=== PATIENT | female | born 1995 | race Caucasian/White ===

== ENCOUNTER 2018-06-23 08:05 | Inpatient (IN) | payer BC, OTHER ==
[2018-06-23 08:57] LABS: APPEARANCE,URINE CLOUDY; BILIRUBIN,URINE NEGATIVE (NEGATIVE); COLOR,URINE YELLOW; GLUCOSE, URINE NEGATIVE (NEGATIVE); KETONES,URINE NEGATIVE (NEGATIVE); LEUKOCYTE ESTERASE,URINE TRACE (NEGATIVE); NITRITE,URINE NEGATIVE (NEGATIVE); PROTEIN,URINE 30 mg/dL (NEGATIVE); URINE SPECIFIC GRAVITY 1.018; UROBILINOGEN,URINE NEGATIVE mg/dL (<2.0)
[2018-06-23 09:12] LABS: URINE AMPHETAMINES SCREEN NEGATIVE; URINE BARBITURATES SCREEN NEGATIVE; URINE BENZODIAZEPINES SCREEN NEGATIVE; URINE COCAINE SCREEN NEGATIVE; URINE MARIJUANA (THC) SCREEN NEGATIVE; URINE METHADONE SCREEN NEGATIVE; URINE PHENCYCLIDINE SCREEN NEGATIVE
[2018-06-23] MEDS ORDERED: RINGERS SOLUTION,LACTATED 1,000 ML IV ONE (09:23)
[2018-06-23] MEDS ORDERED: PENICILLIN G POTASSIUM 5,000,000 UNIT in DEXTROSE 5%-WATER 100 ML IV ONE (09:23)
[2018-06-23] MEDS ORDERED: ONDANSETRON HCL INJ/PF 4 MG/2 ML SDV IV PRN (09:29)
[2018-06-23] MEDS ORDERED: AZITHROMYCIN INJ 500 MG VIAL IV ONE ×2 (09:30→11:08)
[2018-06-23] MEDS ORDERED: PENICILLIN G-K 5 MILLION UNIT VIAL ONE ×4 (09:31→21:56)
[2018-06-23] MEDS ORDERED: ONDANSETRON HCL INJ/PF 4 MG/2 ML SDV ONE (09:31)
[2018-06-23] MEDS ORDERED: BETAMET ACET/BETAMET NA INJ 6 MG/1 ML ONE (09:31)
--- NOTE | 2018-06-23 09:36 | Admission Physical ---
Datetime Report Generated by CPN: 06/23/2018 09:36 CURRENT ADMISSION Chief Complaint: Suspected Ruptured Membranes Indication for Induction: Postterm Admit Impression : , Intrauterine Admit Plan: Admit to Unit; Initiate Labor Protocol ALLERGIES Medication Allergies: No Medication Allergies: No Known Allergies (06/23/2018) Latex: No Latex Allergies Food Allergies: none noted Environmental Allergies: noted OBSTETRICAL HISTORY EDC: 08/16/2018 00:00 : 1 Para: 0 Term: 0 : 0 SAB: 0 IAB: 0 Livin Gestational Diabetes: No Rh Sensitization: No Incompetent Cervix: No MELODIE: No Infertility: No ART Treatment: No Uterine Anomaly: No IUGR: No Hx Previous C/S: No Macrosomia: No Hx Loss/Stillborn: No PIH: No Hx : No Placenta Previa/Abruption: No Depression/PP Depression: No PTL/PROM: No Post Hemorrhage: No Current Procedures: Ultrasound; NST Obstetrical History Comments: SEE RECORDS Alcohol: No Marijuana : No Cocaine: No Other Illicit Drugs: No Cigarettes: Never Smoker. [id number] MEDICAL HISTORY Diabetes: No Blood Transfusion: No Pulmonary Disease (Asthma, TB): No Breast Disease: No Hypertension: No Service Delivery Manager Surgery: No Heart Disease: No Hosp/Surgery: No Autoimmune Disorder: No Anesthetic Complications: No Kidney Disease: No Abnormal Pap Smear: No Neuro/Epilepsy: No Psychiatric Disorders: No Other Medical Diseases: No Hepatitis/Liver Disease: No Significant Family History: No Varicosities/Phlebitis: No Thyroid Dysfunction: No PHYSICAL EXAM General: Normal HEENT: Normal Neurologic: Normal Thyroid: Normal Heart: Normal Lungs: Normal Breast: Normal Back: Normal Abdomen: Normal Genitourinary Exam: Normal Extremities: Normal DTRs: Normal Pelvic Type: Adequate Vital Signs: Reviewed; Within Normal Limits VAGINAL EXAM Contraction Comments: q 2-4 MEMBRANES Pooling: Positive Membranes: Ruptured Amniotic Fluid Color: Clear FETUS A EGA: 32.2 Monitoring: External US FHR- Baseline: 130s Variability: Moderate 6-25bpm Accelerations: 15X15 Decelerations: None FHR Category: Category I Admit Comment: Cervix not checked, but Actim Prom POSITIVE. Betamethasone given. Will start Zithromax to help prolong latency. PCN for GBS prophylaxis. PLANS FOR LABOR AND DELIVERY Labor and Delivery: None Pain Management: None Feeding Preference: Breast Benefit of Breast Feed Discussed: Yes Circumcision: N/A INFORMED CONSENT Signature: with User ID: [email or web address]
--- NOTE | 2018-06-23 09:41 | L&D Progress Notes ---
PROGRESS NOTES Datetime Report Generated by CPN: 06/23/2018 09:41 PROGRESS NOTE Impression: Rupture of Membranes Procedures- Other: bedside US Plan: Continue Present Management Vital Signs : Reviewed; Within Normal Limits Comment: Pt states that fetus was breech at last visit. Bedside US shows vertex position, VAGINAL EXAM Contractions: q 2-4 MEMBRANES Pooling: Positive Membranes: Ruptured Amniotic Fluid Color: Clear FETUS A FHR - Baseline: 130s Monitoring: External US Accelerations: 15X15 Decelerations: None FHR Category: Category I : 32.2 SIGNATURE SIGNATURE: [id number];[id number] SIGNATURE: [id number] Signature: with User ID: [email or web address]
[2018-06-23] MEDS ORDERED: AZITHROMYCIN INJ 500 MG VIAL IV SCH (10:00)
[2018-06-23 10:19] LABS: ABSOLUTE LYMPHOCYTES (AUTO) 1.4 10^3/uL (0.5-4.7); ABSOLUTE MONOCYTES (AUTO) 0.6 10^3/uL (0.1-1.4); ABSOLUTE NEUT (AUTO) 5.4 10^3/uL (1.7-8.2); BASOPHILS % (AUTO) 0.5 % (0-2); EOSINOPHILS % (AUTO) 0.5 % (0-6); HEMATOCRIT 34.3 % (36.0-47.0); HEMOGLOBIN 11.5 g/dL (12.0-15.5); LYMPHOCYTES % (AUTO) 18.4 % (13-45); MEAN CORPUSCULAR HEMOGLOBIN 29.6 pg (27.0-33.4); MEAN CORPUSCULAR HGB CONC 33.6 g/dL (32.0-36.0); MEAN CORPUSCULAR VOLUME 88 fl (80-97); MONOCYTES % (AUTO) 8.3 % (3-13); PLATELET COUNT 260 10^3/uL (150-450); RED BLOOD COUNT 3.89 10^6/uL (3.72-5.28); RED CELL DISTRIBUTION WIDTH 12.1 % (11.5-14.0); SEGMENTED NEUTROPHILS % (AUTO) 72.3 % (42-78); TOTAL CELLS COUNTED % (AUTO) 100 %; WHITE BLOOD COUNT 7.4 10^3/uL (4.0-10.5)
[2018-06-23] MEDS: PENICILLIN G POTASSIUM 2,500,000 UNIT in DEXTROSE 5%-WATER 50 ML IV SCH ×3 (14:10→22:03)
--- NOTE | 2018-06-23 20:09 | L&D Progress Notes ---
PROGRESS NOTES Datetime Report Generated by CPN: 06/23/2018 20:09 PROGRESS NOTE Procedures- Other: monitoring Plan: Continue Present Management Vital Signs : Reviewed; Within Normal Limits Comment: Contractions spacing out. Pt still comfortable. PCN and Zithromax given. Betamethasone x 1 given. FETUS A FHR - Baseline: 130s Monitoring: External US Variability: Moderate 6-25bpm Accelerations: 15X15 Decelerations: None FHR Category: Category I : 32.2 FETUS C SIGNATURE: [id number];[id number] Signature: with User ID: [email or web address]
[2018-06-24] MEDS ORDERED: PENICILLIN G-K 5 MILLION UNIT VIAL ONE ×4 (01:47→13:28)
[2018-06-24] MEDS: PENICILLIN G POTASSIUM 2,500,000 UNIT in DEXTROSE 5%-WATER 50 ML IV SCH ×6 (01:57→21:23)
[2018-06-24] MEDS ORDERED: MAGNESIUM SULFATE 4 GM/100 ML RTUPB IV ONE ×2 (07:56→09:30)
--- NOTE | 2018-06-24 07:57 | L&D Progress Notes ---
PROGRESS NOTES Datetime Report Generated by CPN: 06/24/2018 07:56 PROGRESS NOTE Procedures- Other: Mag sulfate Plan: Anticipate Vaginal Delivery Vital Signs : Reviewed; Within Normal Limits Comment: Pt still comfortable. Will give Magnesium sulfate 4 g bolus for neuroprotection. Cont current care. VAGINAL EXAM Contractions: q 6 min FETUS A FHR - Baseline: 130s Monitoring: External US Variability: Moderate 6-25bpm Accelerations: 15X15 Decelerations: None FHR Category: Category I : 32.3 FETUS C SIGNATURE: [id number];[id number] Signature: with User ID: [email or web address]
[2018-06-24] MEDS ORDERED: AZITHROMYCIN 250 MG TABLET ONE (09:20)
[2018-06-24] MEDS ORDERED: BETAMET ACET/BETAMET NA INJ 6 MG/1 ML ONE (09:22)
[2018-06-24] MEDS: BETAMET ACET/BETAMET NA INJ 6 MG/1 ML IM SCH ×2 (09:26→19:57)
--- NOTE | 2018-06-24 09:46 | Non Stress Test Report ---
Non Stress Test Datetime Report Generated by CPN: 06/24/2018 09:46 DEMOGRAPHIC EGA NST: 32.3 INDICATION Indication for Study: Ordered by Provider MONITORING Monitor Explained: Monitor Explained; Test Explained; Patient Verbalized Understanding Time on Monitor: 06/24/2018 09:16 Time off Monitor: 06/24/2018 09:36 NST Duration: 20 NST INTERVENTIONS NST Interventions: PO Hydration Physician Notified NST: C. Diallo, CNM BABY A: [id number] BABY A Movement : Present Contraction Frequency : irregular FHR Baseline : 140 Accelerations : 15X15 Decelerations : None Variability : Moderate 6-25bpm NST Review: Meets Criteria for Reactive NST NST Review and Verified By : DIANE Cortez Results: Reactive NST REPORT Report Trigger: Send Report
[2018-06-24] MEDS: AZITHROMYCIN 250 MG TABLET PO SCH (10:32)
[2018-06-25] MEDS: PENICILLIN G POTASSIUM 2,500,000 UNIT in DEXTROSE 5%-WATER 50 ML IV SCH ×6 (01:44→21:40)
[2018-06-25] MEDS: AZITHROMYCIN 250 MG TABLET PO SCH (11:06)
[2018-06-26] MEDS: PENICILLIN G POTASSIUM 2,500,000 UNIT in DEXTROSE 5%-WATER 50 ML IV SCH ×6 (01:30→21:54)
--- NOTE | 2018-06-26 06:48 | PDOC PROGRESS REPORT ---
Subjective Progress Note for:: 06/25/18 Subjective:: doing well. no contractions, no bleeding. has not noted any further leakage of fluid Reason For Visit: Physical Exam - Physical Exam Vital Signs: Temp Pulse Resp BP Pulse Ox 98.4 F 70 16 101/56 L 97 06/26/18 03:33 06/26/18 03:33 06/26/18 03:33 06/26/18 03:33 06/26/18 03:33 Intake & Output 06/24/18 06/25/18 06/26/18 06:59 06:59 06:59 Intake Total 250 1100 990 Balance 250 1100 990 Weight 67 kg 67.3 kg 67.3 kg General appearance: PRESENT: no acute distress, cooperative GI/Abdominal exam: PRESENT: soft - no tenderness - Obstetrical Exam Fundal Height: 3/u - 4/u - no fundal tenderness Result Laboratory Results: 06/23/18 09:49 Assessment & Plan - Diagnosis (1) Qualifiers: Weeks of gestation: 32 weeks Qualified Code(s): Z3A.32 - 32 weeks gestation of Is this a current diagnosis for this admission?: Yes (2) premature rupture of membranes, antepartum Is this a current diagnosis for this admission?: Yes - Time Time Spent with patient: Less than 15 minutes Within: Other - Inpatient Certification Based on my medical assessment, after consideration of the patient's comorbidities, presenting symptoms, or acuity I expect that the services needed warrant INPATIENT care.: Yes I certify that my determination is in accordance with my understanding of Medicare's requirements for reasonable and necessary INPATIENT services [42 CFR 412.3e].: Yes Medical Necessity: Need Close Monitoring Due to Risk of Patient Decompensation, Need for IV Antibiotics - Plan Summary Plan Summary: deliver at 34 wks if labor does not ensue. monitor in hospital for signs/sxs of infection which would require earlier delivery.
--- NOTE | 2018-06-26 09:07 | PDOC PROGRESS REPORT ---
Subjective Progress Note for:: 06/26/18 Subjective:: She feels well today with good movement. Reason For Visit: prolonged rupture of membranes. Physical Exam - Physical Exam Vital Signs: Temp Pulse Resp BP Pulse Ox 98.2 F 80 17 117/75 98 06/26/18 08:18 06/26/18 08:18 06/26/18 08:18 06/26/18 08:18 06/26/18 08:18 Intake & Output 06/25/18 06/26/18 06/27/18 06:59 06:59 06:59 Intake Total 1100 1040 Balance 1100 1040 Weight 67.3 kg 67.3 kg General appearance: PRESENT: no acute distress GI/Abdominal exam: PRESENT: normal bowel sounds, soft, other - gravid. ABSENT: distended, guarding, mass, organolmegaly, rebound, tenderness Result Laboratory Results: 06/23/18 09:49 Impressions: Ruptured membranes at 33w 1d. Monitor for signs of infection. Consider delivery at 34 wks. Assessment & Plan - Diagnosis (1) premature rupture of membranes, antepartum Is this a current diagnosis for this admission?: Yes - Time Time Spent with patient: 15-24 minutes - Plan Summary Plan Summary: Monitor for infections. Deliver at 34 wks.
[2018-06-26] MEDS: AZITHROMYCIN 250 MG TABLET PO SCH (09:28)
[2018-06-27] MEDS: PENICILLIN G POTASSIUM 2,500,000 UNIT in DEXTROSE 5%-WATER 50 ML IV SCH ×6 (01:28→21:08)
--- NOTE | 2018-06-27 09:22 | PDOC PROGRESS REPORT ---
Subjective Progress Note for:: 06/27/18 Subjective:: Patient states that she feels good; rare contractions. Patient reports good movement. She has no complaints of abnormal discharge. Patient denies chest pain, shortness of breath, fever/chills and nausea/vomiting. Reason For Visit: Physical Exam - Physical Exam Vital Signs: Temp Pulse Resp BP Pulse Ox 98.2 F 68 18 117/71 96 06/27/18 05:49 06/27/18 03:46 06/27/18 03:46 06/26/18 23:36 06/27/18 03:46 Intake & Output 06/26/18 06/27/18 06/28/18 06:59 06:59 06:59 Intake Total 1090 250 Balance 1090 250 Weight 67.3 kg 67.1 kg General appearance: PRESENT: no acute distress Respiratory exam: PRESENT: clear to auscultation gely Cardiovascular exam: PRESENT: RRR GI/Abdominal exam: PRESENT: normal bowel sounds, soft Extremities exam: ABSENT: calf tenderness, clubbing, full ROM, joint swelling, pedal edema, tenderness, +1 edema, +2 edema, other Result Laboratory Results: 06/23/18 09:49 Assessment & Plan - Diagnosis (1) Qualifiers: Weeks of gestation: 32 weeks Qualified Code(s): Z3A.32 - 32 weeks gestation of Is this a current diagnosis for this admission?: Yes (2) premature rupture of membranes, antepartum Is this a current diagnosis for this admission?: Yes - Time Time Spent with patient: Less than 15 minutes Within: Other - After delivery at 34 weeks - Plan Summary Plan Summary: 1. CBC 2. EMERALD brown 3. Continue current care
[2018-06-27] MEDS: AZITHROMYCIN 250 MG TABLET PO SCH (09:31)
[2018-06-27 10:41] LABS: ABSOLUTE LYMPHOCYTES (AUTO) 1.7 10^3/uL (0.5-4.7); ABSOLUTE MONOCYTES (AUTO) 0.8 10^3/uL (0.1-1.4); ABSOLUTE NEUT (AUTO) 5.9 10^3/uL (1.7-8.2); BASOPHILS % (AUTO) 0.2 % (0-2); EOSINOPHILS % (AUTO) 0.1 % (0-6); HEMATOCRIT 31.3 % (36.0-47.0); HEMOGLOBIN 10.8 g/dL (12.0-15.5); LYMPHOCYTES % (AUTO) 19.9 % (13-45); MEAN CORPUSCULAR HEMOGLOBIN 30.5 pg (27.0-33.4); MEAN CORPUSCULAR HGB CONC 34.7 g/dL (32.0-36.0); MEAN CORPUSCULAR VOLUME 88 fl (80-97); MONOCYTES % (AUTO) 9.6 % (3-13); PLATELET COUNT 251 10^3/uL (150-450); RED BLOOD COUNT 3.55 10^6/uL (3.72-5.28); SEGMENTED NEUTROPHILS % (AUTO) 70.2 % (42-78); TOTAL CELLS COUNTED % (AUTO) 100 %; WHITE BLOOD COUNT 8.3 10^3/uL (4.0-10.5)
[2018-06-28] MEDS: PENICILLIN G POTASSIUM 2,500,000 UNIT in DEXTROSE 5%-WATER 50 ML IV SCH ×6 (01:53→21:56)
[2018-06-28] MEDS: AZITHROMYCIN 250 MG TABLET PO SCH (11:00)
[2018-06-29] MEDS: PENICILLIN G POTASSIUM 2,500,000 UNIT in DEXTROSE 5%-WATER 50 ML IV SCH ×6 (00:34→22:28)
[2018-06-29] MEDS: AZITHROMYCIN 250 MG TABLET PO SCH (09:48)
--- NOTE | 2018-06-29 20:00 | PDOC PROGRESS REPORT ---
Subjective Progress Note for:: 06/29/18 Reason For Visit: . doing well. occasional contractions. Physical Exam - Physical Exam Vital Signs: Temp Pulse Resp BP Pulse Ox 98.4 F 91 16 112/65 97 06/29/18 17:58 06/29/18 15:57 06/29/18 15:57 06/29/18 15:57 06/29/18 15:57 Intake & Output 06/28/18 06/29/18 06/30/18 06:59 06:59 06:59 Intake Total 086 180 4559 Balance 235 692 8950 Weight 65.6 kg 65.8 kg General appearance: PRESENT: no acute distress, cooperative Result Laboratory Results: 06/27/18 10:05 Assessment & Plan - Diagnosis (1) Qualifiers: Weeks of gestation: 32 weeks Qualified Code(s): Z3A.32 - 32 weeks gestation of Is this a current diagnosis for this admission?: Yes (2) premature rupture of membranes, antepartum Is this a current diagnosis for this admission?: Yes - Plan Summary Plan Summary: JONELLE 33 4/7 today with ruptured membranes. Plan for delivery after 34 wks which should be on 07/02/18
[2018-06-30] MEDS: PENICILLIN G POTASSIUM 2,500,000 UNIT in DEXTROSE 5%-WATER 50 ML IV SCH ×5 (01:39→19:47)
[2018-06-30] MEDS: AZITHROMYCIN 250 MG TABLET PO SCH (09:47)
--- NOTE | 2018-06-30 10:23 | PDOC PROGRESS REPORT ---
Subjective Progress Note for:: 06/30/18 Subjective:: pt without complaints Reason For Visit: Physical Exam - Physical Exam Vital Signs: Temp Pulse Resp BP Pulse Ox 98.1 F 56 L 16 110/79 96 06/30/18 09:45 06/30/18 07:48 06/30/18 07:48 06/30/18 07:48 06/30/18 07:48 Intake & Output 06/29/18 06/30/18 07/01/18 06:59 06:59 06:59 Intake Total 300 2260 Balance 300 2260 Weight 65.8 kg General appearance: PRESENT: no acute distress Result Laboratory Results: 06/27/18 10:05 Assessment & Plan - Diagnosis (1) Qualifiers: Weeks of gestation: 32 weeks Qualified Code(s): Z3A.32 - 32 weeks gestation of Is this a current diagnosis for this admission?: Yes (2) premature rupture of membranes, antepartum Is this a current diagnosis for this admission?: Yes - Plan Summary Plan Summary: plan induction at 34 weeks
--- NOTE | 2018-06-30 13:31 | RADIOLOGY REPORT (SQ) ---
EXAM DESCRIPTION: U/S PROFILE W/O STRESS COMPLETED DATE/TIME: 06/30/2018 1:19 pm REASON FOR STUDY: non-reactive stress test; need exact RAMESH COMPARISON: None. TECHNIQUE: Limited best-scale realtime and static images of the fetus to measure specified parameter s. LIMITATIONS: None. FINDINGS: HEART RATE: 136 beats per minute. RAMESH: 13.6 cm. BREATHING MOVEMENT: 0 points. MOVEMENT: 2 points. POSTURE AND TONE: 2 points. QUALITATIVE RAMESH: 2 points. OTHER: No other significant finding. IMPRESSION: BIOPHYSICAL PROFILE: 12/14. Trimester of : Third - 28 weeks to delivery COMMENT: BREATHING MOVEMENTS: 2 POINTS: PRESENT 0 POINTS: ABSENT MOTION: 2 POINTS: PRESENT 0 POINTS: ABSENT TONE: 2 POINTS: PRESENT 0 POINTS: ABSENT AMNIOTIC FLUID VOLUME: 2 POINTS: LARGEST POCKET GREATER THAN 2 CM DEPTH. 0 POINTS: NO POCKET OF 2 CM. TECHNICAL DOCUMENTATION: JOB ID: [id number] [employer]- All Rights Reserved Reading location - IP/workstation name: [email or web address]
[2018-07-01] MEDS: PENICILLIN G POTASSIUM 2,500,000 UNIT in DEXTROSE 5%-WATER 50 ML IV SCH ×6 (00:15→20:21)
--- NOTE | 2018-07-01 08:26 | RADIOLOGY REPORT (SQ) ---
EXAM DESCRIPTION: U/S PROFILE W/O STRESS COMPLETED DATE/TIME: 07/01/2018 8:05 am REASON FOR STUDY: non-reative NST; BBP 06/30 is 6/8; need exact RAMESH COMPARISON: 04/30/2018 TECHNIQUE: Limited best-scale realtime and static images of the fetus to measure specified parameter s. LIMITATIONS: None. FINDINGS: HEART RATE: 149 beats per minute. RAMESH: 10.8 cm. BREATHING MOVEMENT: 2 points. MOVEMENT: 2 points. POSTURE AND TONE: 2 points. QUALITATIVE RAMESH: 2 points. OTHER: No other significant finding. IMPRESSION: BIOPHYSICAL PROFILE: 02/13. Trimester of : Third - 28 weeks to delivery COMMENT: BREATHING MOVEMENTS: 2 POINTS: PRESENT 0 POINTS: ABSENT MOTION: 2 POINTS: PRESENT 0 POINTS: ABSENT TONE: 2 POINTS: PRESENT 0 POINTS: ABSENT AMNIOTIC FLUID VOLUME: 2 POINTS: LARGEST POCKET GREATER THAN 2 CM DEPTH. 0 POINTS: NO POCKET OF 2 CM. TECHNICAL DOCUMENTATION: JOB ID: [id number] [employer]- All Rights Reserved Reading location - IP/workstation name: [email or web address]
--- NOTE | 2018-07-01 09:57 | PDOC PROGRESS REPORT ---
Subjective-OB Progress Note for:: 07/01/18 - IUP at 33.6 days. For IOL tomorrow. Doing well today, no complaints. s/p PPROM on 06/23, GBS result pending. Physical Exam (OB) Vital Signs: Temp Pulse Resp BP Pulse Ox 97.7 F 105 H 18 111/78 98 07/01/18 08:00 07/01/18 08:00 07/01/18 08:00 07/01/18 08:00 07/01/18 08:00 Intake & Output 06/30/18 07/01/18 07/02/18 06:59 06:59 06:59 Intake Total 2260 200 Balance 2260 200 Weight 65.8 kg - General General Appearance: Appears well, Alert In distress: None - Abdomen Description: Soft Hernia Present: No Fundal Height: 3/u - 4/u - no fundal tenderness - Respiratory Respiratory Status: No respiratory distress - Abdominal Inspection: Normal Tenderness: Nontender - Genitourinary Genitourinary Note: voiding - Extremities Upper extremity: Normal inspection Lower extremities: Normal inspection - Neurological Cognition: Normal, Confused - Psychological Associated symptoms: Normal affect, Normal mood - Skin Skin Temperature: Warm Skin Moisture: Dry Objective-Diagnostic Laboratory: 06/27/18 10:05 Assessment and Plan(PN) - Assessment and Plan (1) 33 weeks gestation of Is this a current diagnosis for this admission?: Yes (2) Qualifiers: Weeks of gestation: 33 weeks Qualified Code(s): Z3A.33 - 33 weeks gestation of Is this a current diagnosis for this admission?: Yes (3) premature rupture of membranes, antepartum Is this a current diagnosis for this admission?: Yes - Time Spent with Patient Time with patient: Less than 15 minutes Medications reviewed and adjusted accordingly: Yes - Disposition Disposition: VE Plan IOL for 07/[address] Keller aware of pt status and plan of care
[2018-07-02] MEDS: PENICILLIN G POTASSIUM 2,500,000 UNIT in DEXTROSE 5%-WATER 50 ML IV SCH ×6 (00:28→20:48)
[2018-07-02] MEDS ORDERED: ZOLPIDEM TARTRATE 5 MG TABLET PO PRN (20:24)
[2018-07-02] MEDS ORDERED: MAG HYDROX/AL HYDROX/SIMETH SUSP 30 ML UDCUP PO PRN (20:24)
[2018-07-02] MEDS ORDERED: ACETAMINOPHEN 325 MG TABLET PO PRN (20:24)
[2018-07-02] MEDS ORDERED: DINOPROSTONE 10 MG VAGINAL INSERT.SR PV ONE (20:40)
[2018-07-02] MEDS: RINGERS SOLUTION,LACTATED 1,000 ML IV PRN (20:48)
[2018-07-02] MEDS ORDERED: DINOPROSTONE 10 MG VAGINAL INSERT.SR ONE (20:50)
[2018-07-03] MEDS: PENICILLIN G POTASSIUM 2,500,000 UNIT in DEXTROSE 5%-WATER 50 ML IV SCH ×6 (00:20→23:00)
[2018-07-03] MEDS: RINGERS SOLUTION,LACTATED 1,000 ML IV PRN ×2 (05:01→14:18)
[2018-07-03 09:27] LABS: BACTERIA (WET MOUNT) 3+ BACTERIA SEEN; EPITHELIALS (WET MOUNT) 3+ EPITHELIALS SEEN; T.VAGINALIS (WET MOUNT) NO TRICHOMONAS SEEN; WBCS (WET MOUNT) 1+ WBCS SEEN; YEAST (WET MOUNT) NO YEAST SEEN
[2018-07-03] MEDS ORDERED: OXYTOCIN 10 UNIT/ML VIAL ONE (10:21)
[2018-07-03] MEDS ORDERED: OXYTOCIN/NORMAL SALINE 20 UNIT/1,000 ML RTUINJ ONE (10:21)
[2018-07-03] MEDS ORDERED: LIDOCAINE 1% INJ-PF (10 MG/ML) 30 ML SDV ONE (10:21)
[2018-07-03] MEDS ORDERED: MISOPROSTOL 0.2 MG TABLET ONE (10:21)
[2018-07-03] MEDS ORDERED: PENICILLIN G-K 5 MILLION UNIT VIAL ONE ×3 (10:22→18:57)
--- NOTE | 2018-07-03 10:23 | L&D Progress Notes ---
PROGRESS NOTES Datetime Report Generated by CPN: 07/03/2018 10:23 PROGRESS NOTE Impression: Reassuring Heart Rate Procedures: Sterile Vag Exam Plan: Continue Present Management; Induction; Anticipate Vaginal Delivery Vital Signs : Reviewed; Within Normal Limits Comment: VE 1+, 60-70, vtx, 0 to + 1 Plan reviewed with pt and family, questions answered, start Pitocin Cat 1 strip LAST VAGINAL EXAM-NURSING Dilitation: 1.0 Dilitation: 1.0 Effacement: 60 Effacement: thick Station: 0 Station: -1 Contractions: tracing inverted Contractions: difficult to assess not tracing well Contractions: UC tracing inverted Contractions: pt denies feeling UC at this time Contractions: applied MEMBRANES Membranes: Ruptured FETUS A FHR - Baseline: 155 Monitoring: External US Variability: Moderate 6-25bpm Accelerations: 15X15 Decelerations: None : 34.0 SIGNATURE SIGNATURE: [id number];[id number];14,[id number] SIGNATURE: [id number];13,[id number];10,[id number] Assignment: Meliza Hoang MD Signature: with User ID: [email or web address] : with User ID: [email or web address]
[2018-07-03] MEDS ORDERED: OXYTOCIN/NORMAL SALINE 20 UNIT/1,000 ML RTUINJ IV PRN (10:25)
[2018-07-03 11:03] LABS: CHLAM PCR NOT DETECTED (NOT DETECT); GON PCR NOT DETECTED (NOT DETECT)
--- NOTE | 2018-07-03 20:08 | L&D Progress Notes ---
PROGRESS NOTES Datetime Report Generated by CPN: 07/03/2018 20:08 PROGRESS NOTE Impression: Normal Progression of Labor Procedures: Sterile Vag Exam Plan: Continue Present Management; Induction; Cervical Ripening Informed Consent Obtained: Vaginal Delivery; Induction of Labor; Risks, Benefits and Alternatives Discussed Comment: /-1. Cheko catheter placed. Pt tolerated well. Reviewed IOL process and continue with plan of care. Anticipate . VAGINAL EXAM Dilitation: 1.5 Effacement: 50 Station: -1 MEMBRANES Membranes: Ruptured FETUS A FHR - Baseline: 150 Monitoring: External US Accelerations: 15X15 Decelerations: None FHR Category: Category I FETUS C SIGNATURE: [id number];13,[id number];10,[id number] Signature: with User ID: [email or web address]
[2018-07-03] MEDS ORDERED: ZOLPIDEM TARTRATE 5 MG TABLET ONE (21:54)
[2018-07-03] MEDS ORDERED: ACETAMINOPHEN 325 MG TABLET ONE (23:29)
[2018-07-04] MEDS: PENICILLIN G POTASSIUM 2,500,000 UNIT in DEXTROSE 5%-WATER 50 ML IV SCH ×3 (03:22→18:12)
[2018-07-04] MEDS ORDERED: NALBUPHINE HCL INJ 10 MG/1 ML AMPULE ONE (04:28)
[2018-07-04] MEDS ORDERED: NALBUPHINE HCL INJ 10 MG/1 ML AMPULE INJ ONE (05:00)
[2018-07-04] MEDS ORDERED: OXYTOCIN/NORMAL SALINE 20 UNIT/1,000 ML RTUINJ ONE (07:16)
[2018-07-04] MEDS ORDERED: LIDOCAINE 1% INJ-PF (10 MG/ML) 30 ML SDV ONE (07:21)
[2018-07-04] MEDS ORDERED: PROMETHAZINE HCL 25 MG TABLET PO PRN (08:29)
[2018-07-04] MEDS ORDERED: DIPHENHYDRAMINE HCL 25 MG CAPSULE PO PRN (08:29)
[2018-07-04] MEDS ORDERED: MAGNESIUM HYDROXIDE SUSP 30 ML UDCUP PO PRN (08:29)
[2018-07-04] MEDS ORDERED: PROMETHAZINE HCL INJ 25 MG/1 ML VIAL IV PRN (08:29)
[2018-07-04] MEDS ORDERED: PROMETHAZINE HCL 25 MG SUPP.RECT PR PRN (08:29)
[2018-07-04] MEDS ORDERED: GLYCERIN/WITCH HAZEL LEAF 1 EACH MED..PAD TP PRN (08:29)
[2018-07-04] MEDS ORDERED: MISOPROSTOL 0.2 MG TABLET PR PRN (08:29)
[2018-07-04] MEDS ORDERED: DIBUCAINE 1% OINTMENT 28 GM TP PRN (08:29)
[2018-07-04] MEDS ORDERED: PSEUDOEPHEDRINE HCL 30 MG TABLET PO PRN (08:29)
[2018-07-04] MEDS ORDERED: DIPH/PERTUSS(ACELL)/TETANUS VAC/PF 0.5 ML SYR (>=10YO) IM PRN (08:29)
[2018-07-04] MEDS ORDERED: BENZOCAINE/MENTHOL AEROSOL SPRAY 56 ML TOP PRN (08:29)
[2018-07-04] MEDS ORDERED: OXYTOCIN/NORMAL SALINE 20 UNIT/1,000 ML RTUINJ IV PRN (08:29)
[2018-07-04] MEDS ORDERED: ACETAMINOPHEN WITH CODEINE #3 TABLET PO PRN ×2 (08:29)
[2018-07-04] MEDS ORDERED: ACETAMINOPHEN 325 MG TABLET PO PRN (08:29)
[2018-07-04] MEDS ORDERED: MEASLES,MUMPS&RUBELLA VACC/PF 0.5 ML VIAL SUBCUT PRN (08:29)
[2018-07-04] MEDS ORDERED: ZOLPIDEM TARTRATE 5 MG TABLET PO PRN (08:29)
[2018-07-04] MEDS ORDERED: NA PHOS,M-B/NA PHOS,DI-BA (ADULT) 133 ML ENEMA PR PRN (08:29)
[2018-07-04] MEDS: FAMOTIDINE 20 MG TABLET PO SCH ×2 (11:40→22:43)
[2018-07-04] MEDS: FERROUS SULFATE 325 MG TABLET PO SCH ×2 (11:41→18:20)
[2018-07-04] MEDS: SENNOSIDES/DOCUSATE 8.6-50 MG 1 EACH TABLET PO SCH (11:41)
[2018-07-04] MEDS: PRENATAL VITAMIN W DHA CAPSULE PO SCH (11:41)
[2018-07-04] MEDS: DOCUSATE SODIUM 100 MG CAPSULE PO SCH ×2 (11:41→18:21)
[2018-07-04] MEDS: IBUPROFEN 800 MG TABLET PO SCH ×2 (11:44→22:42)
[2018-07-05] MEDS: IBUPROFEN 800 MG TABLET PO SCH ×4 (06:02→22:41)
[2018-07-05 07:12] LABS: HEMATOCRIT 23.3 % (36.0-47.0); MEAN CORPUSCULAR HEMOGLOBIN 29.7 pg (27.0-33.4); MEAN CORPUSCULAR HGB CONC 33.9 g/dL (32.0-36.0); MEAN CORPUSCULAR VOLUME 88 fl (80-97); PLATELET COUNT 241 10^3/uL (150-450); RED BLOOD COUNT 2.65 10^6/uL (3.72-5.28); RED CELL DISTRIBUTION WIDTH 12.2 % (11.5-14.0); WHITE BLOOD COUNT 9.2 10^3/uL (4.0-10.5)
[2018-07-05 07:19] LABS: HEMOGLOBIN 7.9 g/dL (12.0-15.5)
[2018-07-05] MEDS: DOCUSATE SODIUM 100 MG CAPSULE PO SCH ×2 (17:48→18:13)
[2018-07-05] MEDS: FERROUS SULFATE 325 MG TABLET PO SCH ×2 (17:48→18:13)
[2018-07-05] MEDS: PRENATAL VITAMIN W DHA CAPSULE PO SCH (17:49)
[2018-07-05] MEDS: FAMOTIDINE 20 MG TABLET PO SCH ×2 (17:49→22:41)
[2018-07-05] MEDS: SENNOSIDES/DOCUSATE 8.6-50 MG 1 EACH TABLET PO SCH (17:49)
[2018-07-06] MEDS: IBUPROFEN 800 MG TABLET PO SCH ×2 (06:00→13:20)
[2018-07-06 08:21] VITALS: BP 110/63
--- NOTE | 2018-07-06 08:55 | PDOC DISCHARGE SUMMARY ---
Final Diagnosis Discharge Date: 07/06/18 - Final Diagnosis (1) Obstetrical laceration, second degree Is this a current diagnosis for this admission?: Yes (2) Vaginal delivery Is this a current diagnosis for this admission?: Yes Discharge Data - Discharge Medication Home Medications: Vit,Calc76/Iron/Folic [Prenatabs Rx Tablet] 1 each PO DAILY 06/23/18 Reason(s) for Admission: PROM Procedures: NST Intrapartum Procedure(s): Spontaneous Vaginal Delivery Complication(s): Laceration-Periurethral Laceration-Degree: 2nd - Diagnosis Test Laboratory: Temp Pulse Resp BP Pulse Ox 98.5 F 120 H 17 115/80 95 07/05/18 09:00 07/05/18 09:00 07/05/18 09:00 07/05/18 09:00 07/05/18 09:00 06/23/18 06/23/18 06/27/18 08:23 09:49 10:05 RBC 3.89 3.55 L Hgb 11.5 L 10.8 L Hct 34.3 L 31.3 L Urine Opiates Screen NEGATIVE 07/05/18 06:47 RBC 2.65 L Hgb 7.9 L Hct 23.3 L Urine Opiates Screen - Discharge information/Instructions Discharge Activity: Balance Activity w/Rest, Pelvic Rest Discharge Diet: Regular Disposition: HOME, SELF-CARE Follow up with: [facility] in: 3, Weeks
[2018-07-06] MEDS: SENNOSIDES/DOCUSATE 8.6-50 MG 1 EACH TABLET PO SCH (10:25)
[2018-07-06] MEDS: FAMOTIDINE 20 MG TABLET PO SCH (10:25)
[2018-07-06] MEDS: PRENATAL VITAMIN W DHA CAPSULE PO SCH (10:25)
[2018-07-06] MEDS: FERROUS SULFATE 325 MG TABLET PO SCH (10:25)
[2018-07-06] MEDS: DOCUSATE SODIUM 100 MG CAPSULE PO SCH (10:25)
--- NOTE | 2018-07-16 10:25 | Delivery Summary ---
Del Sum A-C Datetime Report Generated by CPN: 07/16/2018 10:24 DELIVERY PERSONNEL DELIVERY PERSONNEL: [id number] Delivery Doctor:: Meliza Hoang MD Labor and Delivery Nurse:: Gregor Morales RNtrade embalmer Nurse:: Alayna Jerome RN Neonatal Nurse Practitioner:: JOSE RAFAEL Ott Nursery Nurse:: Enid Santos RN Student Observers:: Estela Enciso RN resident Civil Engineer/LEISURE STUDIES PROFESSOR: Marla Frederick CNA II MATERNAL INFORMATION Delivery Anesthesia: Pudendal Medications After Delivery: Pitocin Drip 20 Units/1000ml NSS Estimated Blood Loss (ml): 550 Maternal Complications: Premature Rupture of Membranes Provider Comments: Pudendal block performed in the usual fashion. VFI delivered in Direct OA presentation. No nuchal cord. However, bloody amniotic fluid noted at delivery and AROM of forebag. Shoulders and body delivered without difficulty. cord doubly clamped and cut and infant to maternal abdomen for NRP. placenta delivered intact spontaneously with large clot noted and consistent with suspected abruption likely secondary to PPROM. FF at U. Good hemostasis after repair. Mother stable after repair and placement of 1000mcg cytotec per rectum. Baby to nursery due to gestational age and PPROM. LABOR SUMMARY EDC: 08/13/2018 00:00 No. Babies in Womb: 1 Attempted: No Labor Anesthesia: None LABOR INFORMATION Reason for Induction: Premature Rupture of Membranes Onset of Labor: 07/04/2018 04:22 Complete Dilatation: 07/04/2018 07:18 Cervical Ripening Agents: Sanchez Balloon Cervical Ripening Agents: Cervidil (Annotations: removed by patient) Oxytocin: Induction Group B Beta Strep: 1 NO GROUP B STREPTOCOCCUS RECOVERED Comments in lab already Group B Beta Strep: unknown Antibiotics # of Doses: 7 Antibiotics Time of Last Dose: 0455 Name of Antibiotic Given: penicillin Steroids Given: Full Course Reason Steroids Not Administered: Indication MEMBRANES Membranes Rupture Method: Spontaneous Membranes Rupture Method: Spontaneous Rupture of Membranes: 06/23/2018 07:30 Length of Rupture (hr): 264.02 Amniotic Fluid Color: Bloody Amniotic Fluid Color: Bloody Amniotic Fluid Amount: Small Amniotic Fluid Amount: Small Amniotic Fluid Odor: Normal STAGES OF LABOR Stage 1 hr: 2 Stage 1 min: 56 Stage 2 hr: 0 Stage 2 min: 13 Stage 3 hr: 0 Stage 3 min: 4 Total Time in Labor hr: 3 Total Time in Labor min: 13 VAGINAL DELIVERY Episiotomy: None Laceration #1: Perineal Laceration Extension #1: Second Degree Laceration Repair: Yes Laceration Repair Note: 2nd degree perineal laceration repaired Sponge Count Correct: N/A Sharps Count Correct: N/A CSECTION DELIVERY Primary Indication: N/A Secondary Indication: N/A CSection Incidence: N/A Labor: N/A Elective: N/A CSection Incision: N/A BABY A INFORMATION Infant Delivery Date/Time: 07/04/2018 07:31 Method of Delivery: Vaginal Method of Delivery: Vaginal Born in Route : No : N/A Forceps: N/A Vacuum Extraction: N/A Shoulder Dystocia : No PRESENTATION/POSITION BABY A Presentation: Cephalic Cephalic Presentation: Vertex Vertex Position: Left Occipital Anterior Breech Presentation: N/A PLACENTA INFORMATION BABY A Placenta Delivery Time : 07/04/2018 07:35 Placenta Method of Delivery: Spontaneous Placenta Status: Delivered SCORES BABY A Heart Rate 1 min: >100 bpm Resp Effort 1 min: Good Cry Reflex Irritability 1 min: Cough or Sneeze or Pulls Away Muscle Tone 1 min: Some Flexion of Extremities Color 1 min: Body [place], Extremities Blue Resuscitation Effort 1 min: Tactile Stimulation SCORE 1 MIN: 8 Heart Rate 5 min: >100 bpm Resp Effort 5 min: Good Cry Reflex Irritability 5 min: Cough or Sneeze or Pulls Away Muscle Tone 5 min: Some Flexion of Extremities Color 5 min: Body [place], Extremities Blue Resuscitation Effort 5 min: Tactile Stimulation SCORE 5 MIN: 8 INFORMATION BABY A Gestational Age at Delivery: 34.2 Gestational Status: Late - 34- 36.6 Weeks Infant Outcome : Liveborn Condition : Stable Infant Sex: Female Sex: Female IDENTIFICATION BABY A Verification Date/Time: 07/04/2018 07:48 ID Band Number: [id number] Mother's Name Verified: Yes Infant RN Verifying Infant: Mateo Morales/ Estela Jaramillolair WEIGHT/LENGTH BABY A Birthweight (gm): 2072 Infant Weight (lb): 4 Infant Weight (oz): 9 Length (in): 17.75 Infant Length (cm): 45.09 CORD INFORMATION BABY A No. Cord Vessels: 3 Nuchal Cord : N/A Cord Blood Taken: Yes-For Storage (Mom's Blood type +) Suction: Mouth; Nose ASSESSMENT BABY A Health Information Coder/ALS Called : Yes Care By: Estela Santos, RN BABY B INFORMATION : N/A SIGNATURES Signature: with User ID: [email or web address]
== END 2018-07-06 16:42 | disposition home or self-care (01) | DRG 807 ==
LOC: LC 08:05 → LR 09:16 → 2S 06-24 10:44 → LR 07-02 20:21 → 2S 07-04 09:58
PROVIDERS: ADMIT Obstetrics & Gynecology; ATTEND Student in an Organized Health Care Education/Training Program
PROC: 10E0XZZ Delivery of Products of Conception, External Approach (ICD-10-PCS; principal; 2018-07-04)
PROC: 0KQM0ZZ Repair Perineum Muscle, Open Approach (ICD-10-PCS; 2018-07-04)
PROC: 4A1HXCZ Monitoring of Products of Conception, Cardiac Rate, External Approach (ICD-10-PCS; 2018-07-04)
PROC: 3E0234Z Introduction of Serum, Toxoid and Vaccine into Muscle, Percutaneous Approach (ICD-10-PCS; 2018-07-06)
DX: O60.14X0 Preterm labor third trimester with preterm delivery third trimester, not applicable or unspecified (principal); Z37.0 Single live birth; O42.113 Preterm premature rupture of membranes, onset of labor more than 24 hours following rupture, third trimester; O99.824 Streptococcus B carrier state complicating childbirth; O70.1 Second degree perineal laceration during delivery; Z3A.34 34 weeks gestation of pregnancy; Z23 Encounter for immunization
CPT/HCPCS: 36415; 59025; 76819; 80307; 81001; 84112; 85025; 85027; 86592; 86850; 86900; 86901; 87081; 87210; 87491; 87591; 88307; 90715; 96372; C1726; J0456; J0702; J2300; J2405; J2540; J2590; J3475; J3490

== ENCOUNTER → 2019-01-25 | Outpatient (CLI) | payer BC, OTHER ==
[2019-01-25 12:25] LABS: ALANINE AMINOTRANSFERASE 12 U/L (9-52); ALBUMIN 4.6 g/dL (3.5-5.0); ALKALINE PHOSPHATASE 80 U/L (38-126); ANION GAP 11 (5-19); ASPARTATE AMINO TRANSFERASE 23 U/L (14-36); BILIRUBIN,DIRECT 0.3 mg/dL (0.0-0.4); BILIRUBIN,TOTAL 0.5 mg/dL (0.2-1.3); BLOOD UREA NITROGEN 14 mg/dL (7-20); CALCIUM 10.1 mg/dL (8.4-10.2); CARBON DIOXIDE 27 mmol/L (22-30); CHLORIDE 104 mmol/L (98-107); CHOLESTEROL 167.55 mg/dL (0-200); GLUCOSE 77 mg/dL (75-110); POTASSIUM 4.8 mmol/L (3.6-5.0); SODIUM 141.6 mmol/L (137-145); TOTAL PROTEIN 7.4 g/dL (6.3-8.2); TRIGLYCERIDES 51 mg/dL (<150)
[2019-01-25 12:28] LABS: ABSOLUTE EOSINOPHILS # (AUTO) 0.1 10^3/uL (0.0-0.6); ABSOLUTE LYMPHOCYTES (AUTO) 1.7 10^3/uL (0.5-4.7); ABSOLUTE MONOCYTES (AUTO) 0.4 10^3/uL (0.1-1.4); MEAN CORPUSCULAR HEMOGLOBIN 28.5 pg (27.0-33.4); MEAN CORPUSCULAR HGB CONC 32.7 g/dL (32.0-36.0); TOTAL CELLS COUNTED % (AUTO) 100 %
[2019-01-25 12:36] LABS: DIRECT LDL 57 mg/dL (<100)
[2019-01-25 12:37] LABS: ABSOLUTE NEUT (AUTO) 1.9 10^3/uL (1.7-8.2); BASOPHILS % (AUTO) 0.6 % (0-2); EOSINOPHILS % (AUTO) 3.5 % (0-6); HEMATOCRIT 38.8 % (36.0-47.0); HEMOGLOBIN 12.7 g/dL (12.0-15.5); LYMPHOCYTES % (AUTO) 40.4 % (13-45); MEAN CORPUSCULAR VOLUME 87 fl (80-97); MONOCYTES % (AUTO) 9.6 % (3-13); PLATELET COUNT 231 10^3/uL (150-450); RED BLOOD COUNT 4.45 10^6/uL (3.72-5.28); RED CELL DISTRIBUTION WIDTH 13.2 % (11.5-14.0); SEGMENTED NEUTROPHILS % (AUTO) 45.9 % (42-78); WHITE BLOOD COUNT 4.2 10^3/uL (4.0-10.5)
--- NOTE | 2019-01-25 13:15 | RADIOLOGY REPORT (SQ) ---
EXAM DESCRIPTION: HIPS BILATERAL COMPLETED DATE/TIME: 01/25/2019 11:24 am REASON FOR STUDY: BILATERAL HIP PAIN M25.551 PAIN IN RIGHT HIP R10.2 PELVIC AND PERINEAL PAIN COMPARISON: None. NUMBER OF VIEWS: Two views TECHNIQUE: AP pelvis and additional frog-leg view of both hips. LIMITATIONS: None. FINDINGS: MINERALIZATION: Normal. HIPS: No acute fracture or dislocation. No worrisome bone lesions. PELVIS AND SACRUM: No acute fracture or dislocation. No worrisome bone lesions. PUBIS AND ISCHIUM: No acute fracture. LOWER LUMBAR SPINE: No significant findings as visualized. SOFT TISSUES: No findings. OTHER: No other significant finding. IMPRESSION: NEGATIVE STUDY OF THE PELVIS AND HIPS. TECHNICAL DOCUMENTATION: JOB ID: [id number] [employer]- All Rights Reserved Reading location - IP/workstation name: [email or web address]
--- NOTE | 2019-01-25 13:16 | RADIOLOGY REPORT (SQ) ---
EXAM DESCRIPTION: KNEE BILATERAL 1-2 VIEWS COMPLETED DATE/TIME: 01/25/2019 11:24 am REASON FOR STUDY: BILATERAL KNEE PAIN M25.551 PAIN IN RIGHT HIP R10.2 PELVIC AND PERINEAL PAIN COMPARISON: None. NUMBER OF VIEWS: Two views. TECHNIQUE: AP and lateral radiographic images acquired of the right and left knee. LIMITATIONS: None. FINDINGS: MINERALIZATION: Normal. BONES: No acute fracture or dislocation. No worrisome bone lesions. No significant osteophytes. JOINT: No effusion. No chondrocalcinosis. OTHER: No other significant finding. IMPRESSION: NEGATIVE STUDY OF THE RIGHT AND LEFT KNEES. NO EXPLANATION FOR PAIN. TECHNICAL DOCUMENTATION: JOB ID: [id number] [employer]- All Rights Reserved Reading location - IP/workstation name: [email or web address]
== END ==
LOC: OD 10:49
PROVIDERS: ATTEND Family Medicine Geriatric Medicine
DX: M25.551 Pain in right hip (principal); R10.2 Pelvic and perineal pain
CPT/HCPCS: 36415; 73522; 80053; 80061; 84443; 85025